=== PATIENT | female | born 1965 | race Caucasian/White ===

== ENCOUNTER → 2023-10-17 15:36 | Outpatient (REF) | payer OTHER, SELFPAY | LOC: HWWDC 15:36 | PROVIDERS: ATTENDING PHYSICIAN Obstetrics & Gynecology; FAMILY PHYSICIAN Nurse Practitioner | DX: Z12.31 Encounter for screening mammogram for malignant neoplasm of breast (principal) | CPT/HCPCS: 77063; 77067 ==

== ENCOUNTER → 2024-05-27 14:40 | Outpatient (REF) | payer OTHER, SELFPAY | LOC: RAD 14:40 | PROVIDERS: ATTENDING PHYSICIAN Obstetrics & Gynecology; FAMILY PHYSICIAN Nurse Practitioner | DX: N95.0 Postmenopausal bleeding (principal) | CPT/HCPCS: 76830; 76856 ==

== ENCOUNTER → 2024-06-17 16:01 | Outpatient (REF) | payer OTHER, SELFPAY | LOC: HWRAD 16:01 | PROVIDERS: ATTENDING PHYSICIAN Nurse Practitioner | DX: M25.551 Pain in right hip (principal) | CPT/HCPCS: 73502 ==

== ENCOUNTER → 2024-07-04 12:58 | Outpatient (REF) | payer OTHER, SELFPAY | LOC: HWRCS 12:58 | PROVIDERS: ATTENDING PHYSICIAN Nurse Practitioner | DX: I34.0 Nonrheumatic mitral (valve) insufficiency (principal) | CPT/HCPCS: 93306 ==

== ENCOUNTER 2024-07-18 06:23 | Day surgery (SDC) | payer OTHER, SELFPAY ==
[2024-07-18] VITALS (10 sets, daily range): BP systolic 112–139; BP diastolic 53–77; BMI 49.4
[2024-07-18] MEDS: NORMOSOL-R/PLASMALYTE-A 1000 IV (08:13)
== END 2024-07-18 11:50 | disposition home or self-care (01) ==
LOC: SDS 06:23
PROVIDERS: ATTENDING PHYSICIAN Obstetrics & Gynecology
DX: N85.8 Other specified noninflammatory disorders of uterus (principal); N95.0 Postmenopausal bleeding; N88.2 Stricture and stenosis of cervix uteri
CPT/HCPCS: 58558; 88305; 86850; 86900; 86901

== ENCOUNTER → 2024-10-06 07:42 | Outpatient (REF) | payer OTHER, SELFPAY | LOC: MRI 07:42 | PROVIDERS: ATTENDING PHYSICIAN Obstetrics & Gynecology; FAMILY PHYSICIAN Nurse Practitioner | DX: N95.0 Postmenopausal bleeding (principal) | CPT/HCPCS: 72197; A9575 ==

== ENCOUNTER 2024-11-11 06:16 | Day surgery (SDC) | payer OTHER, SELFPAY ==
--- NOTE | 2024-11-05 12:34 | PTCARENOTE ---
Patients 10/03 ECG abnormal- reviewed by Dr. Newell- no additional interventions required
[2024-11-11] VITALS (12 sets, daily range): BP systolic 92–135; BP diastolic 52–74; BMI 47.8
[2024-11-11] MEDS: NEURONTIN 300 MG PO (09:24)
[2024-11-11] MEDS: TYLENOL 1000 MG PO (09:25)
[2024-11-11] MEDS: NORMOSOL-R/PLASMALYTE-A 1000 IV (09:25)
--- NOTE | 2024-11-11 10:05 | W.SUR.PREOP ---
Pre-Operative Surgical Note
-
I have examined this patient prior to the performance of the scheduled procedure.
The patient's condition is unchanged from the time of the current History and
Physical and the patient is able to undergo the scheduled procedure.
--- NOTE | 2024-11-11 12:55 | W.IMMPOSTOP ---
Surgical Immed Post Op Note
-
Primary Surgeon: Brynn
Assisting Surgeon: LOLITA White
Pre-op Diagnosis: Ventral incisional hernia
Post-op Diagnosis: Ventral incisional hernia
Procedure Performed: Primary robotic ventral incisional hernia repair
Anesthesia Type: General
Specimen / Cultures: None
Estimated Blood Loss: 3 cc
Complications: None
Operative Findings:
1. Ventral incisional hernia containing omentum, fascial defect approximately 6 cm
2. Primary closure with 0 PDS Str[employer] symmetric, minimal tension, overlapping stitch
--- NOTE | 2024-11-11 13:44 | W.IMMPOSTOP ---
Addendum entered and electronically signed by Judie Jackson DO 11/11/24 23:32:
Pre-op dx: Recurrent postmenopausal bleeding and recurrent endometrial polyps
Postop dx: Recurrent postmenopausal bleeding and recurrent endometrial polyps; pelvic adhesions; ventral wall hernia
Procedure: Robotic total laparoscopic hysterectomy bilateral salpingo-oopherectomy, lysis of adhesions (performed by Dr. Jackson); Repair of ventral wall hernia (performed by Dr. Swain).
Original Note:
Surgical Immed Post Op Note
-
Primary Surgeon: Judie Jackson DO
Commodity Loan Clerk: LOLITA Montenegro
Intraop consult: Dr. Swain for repair ventral wall hernia
Pre-op Diagnosis: Recurrent postmenopausal bleeding and recurrent endometrial polyps, lysis adhesions
Post-op Diagnosis: same
Procedure Performed: Robotic total laparoscopic hysterectomy bilateral salpingo-oopherectomy, lysis adhesions (Manuel); repair of ventral wall hernia (/ Brynn)
Anesthesia Type: general ET Dr. Gibson
Specimen / Cultures: uterus, cervix, bilateral tubes and ovaries
Estimated Blood Loss: 15ml
Urine output: 100ml clear yellow
Complications: none
Operative Findings: Heart shaped uterus, normal appearing uterus, cervix, bilateral tubes and ovaries.
Counts correct times 2.
== END 2024-11-11 17:05 | disposition home or self-care (01) ==
LOC: SDS 06:16
PROVIDERS: ATTENDING PHYSICIAN Obstetrics & Gynecology
DX: N84.0 Polyp of corpus uteri (principal); N80.03 Adenomyosis of the uterus; K43.2 Incisional hernia without obstruction or gangrene; K66.0 Peritoneal adhesions (postprocedural) (postinfection); N95.0 Postmenopausal bleeding; N73.6 Female pelvic peritoneal adhesions (postinfective); N88.8 Other specified noninflammatory disorders of cervix uteri
CPT/HCPCS: 58571; 86850; 86900; 86901; 88307